=== PATIENT | male | born 1995 | race Hispanic/Latino ===

== ENCOUNTER 2021-06-23 11:35 | Outpatient (CLI) | payer OTHER | END 2021-06-23 11:36 | disposition home or self-care (01) | LOC: LABHHL 11:35 | PROVIDERS: ATTEND Otolaryngology Sleep Medicine | DX: J35.01 Chronic tonsillitis (principal); J34.2 Deviated nasal septum; J34.3 Hypertrophy of nasal turbinates | CPT/HCPCS: 88304; 88305; 88311 ==